=== PATIENT | male | born 1965 | race Caucasian/White ===

== ENCOUNTER 2021-04-07 14:52 | Emergency (ER) | payer OTHER, SELFPAY ==
[2021-04-07 15:12] VITALS: BP 178/118; PULSE 119; RESP 22; O2SAT 100
--- NOTE | 2021-04-07 15:26 | DI.RAD.S_ITS ---
PROCEDURE: XR CHEST 2V INDICATIONS: chest pain TECHNIQUE: 2 views of the chest were acquired. COMPARISON: None. FINDINGS: Surgical changes and devices: None. Lungs and pleura: Lungs are clear. No pleural effusions or pneumothorax. Mediastinum: Mediastinal contours are normal. Heart size is normal. Bones and chest wall: No suspicious bony abnormalities. Soft tissues appear unremarkable. IMPRESSION: No acute cardiopulmonary disease process. Dictated by: Malorie Sunshine MD, PhD on 04/07/2021 at 15:44 Approved by: Malorie Sunshine MD, PhD on 04/07/2021 at 15:55
[2021-04-07 15:44] LABS: Alanine Aminotransferase 28 IU/L (<50); Albumin 4.6 g/dL (3.5-5.0); Albumin Globulin Ratio 1.5 (1.0-2.8); Alkaline Phosphatase 94 U/L (38-126); Aspartate Aminotransferase 26 IU/L (17-59); BUN Creatinine Ratio 14.1 (6-22); Bilirubin Total 0.3 mg/dL (0.2-1.3); Blood Urea Nitrogen 11 mg/dL (9-20); Calcium 9.5 mg/dL (8.4-10.2); Carbon Dioxide 25 mmol/L (22-32); Chloride 105 mmol/L (98-107); Creatine Kinase 58 U/L (55-170); Estimated Glomerular Filt Rate > 60.0 mL/min (>60); Globulin 3.1 g/dL (1.7-4.1); Glucose 199 mg/dL (70-100); HEMOLYSIS < 15 (0-50); Lipase 247 U/L (23-300); Potassium 3.8 mmol/L (3.4-5.1); Sodium 139 mmol/L (137-145); Total Protein 7.7 g/dL (6.3-8.2)
[2021-04-07 15:56] LABS: Troponin I < 0.012 ng/mL (0.01-0.034)
[2021-04-07 16:00] LABS: Add Manual Diff / Slide Review NO; Basophils Absolute Auto 100 /uL (0-100); Basophils Percent Auto 0.6 % (0-2); Eosinophils Absolute Auto 0 /uL (0-450); Eosinophils Percent Auto 0.2 % (2-4); Hematocrit 46.2 % (41-53); Hemoglobin 15.6 g/dL (13.5-17.5); Lymphocytes Absolute Auto 3300 /uL (1100-4500); Lymphocytes Percent Auto 27.3 % (25-40); Mean Corpuscular HGB Conc 33.8 % (30-36); Mean Corpuscular Hemoglobin 30.8 PG (26-34); Mean Corpuscular Volume 91.3 fL (80-100); Monocytes Absolute Auto 800 /uL (0-900); Monocytes Percent Auto 6.6 % (3-14); Neutrophils Absolute Auto 8000 /uL (1500-7000); Neutrophils Percent Auto 65.3 % (50-75); Platelet Count 309 X10^3/uL (150-400); Red Blood Cell Count 5.06 X10^6/uL (4.5-5.9); Red Cell Distribution Width 12.6 % (11.6-14.8); White Blood Cell Count 12.3 X10^3/uL (4.5-11.0)
[2021-04-07 19:12] VITALS: BP 155/95; PULSE 108; O2SAT 99
[2021-04-07 19:13] VITALS: BP 155/93; PULSE 108; RESP 22; O2SAT 99
--- NOTE | 2021-04-07 19:35 | ED_ITS ---
HPI - Arrhythmia/Palpitations General Chief Complaint: Arrhythmia/Palpitations Stated Complaint: heart issues Time Seen by Provider: 04/07/21 19:09 Source: patient Mode of arrival: Ambulatory History of Present Illness HPI narrative: Patient is a 55-year-old male who is here for evaluation the several weeks of palpitations. He states that there episodes where he feels like that his heart is beating fast and skipping beats. He has been told that he has ?tachycardia? in the past. He also states that his blood pressure is elevated because of ?white coat syndrome ?he states that over the past couple days he feels like his symptoms are getting worse. He does not associate this symptoms with anything that make it better worse. He is not getting chest pain or shortness of breath nor lightheadedness with the symptoms. Had a stress test about 4 years ago which he states was unremarkable. Related Data Home Medications Medication Instructions Recorded Confirmed No Known Home Medications 04/07/21 04/07/21 Allergies Allergy/AdvReac Type Severity Reaction Status Date / Time Sulfa (Sulfonamide Allergy Verified 04/07/21 15:15 Antibiotics) Review of Systems Constitutional Constitutional: Reports system reviewed and no additional complaints, except as documented Cardiovascular Cardiovascular: Reports as per HPI Respiratory Respiratory: Reports system reviewed and no additional complaints, except as documented Gastrointestinal Gastrointestinal: Reports system reviewed and no additional complaints, except as documented Genitourinary Genitourinary: Reports system reviewed and no additional complaints, except as documented Musculoskeletal Musculoskeletal: Reports system reviewed and no additional complaints, except as documented Integumentary/Breasts Skin/Breast: Reports system reviewed and no additional complaints, except as documented Neurologic Neurologic: Reports system reviewed and no additional complaints, except as documented Hematologic/Lymphatic On Anticoagulants: No Allergic/Immunologic Allergic/Immunologic: Reports system reviewed and no additional complaints, except as documented Patient History Medical History Tachycardia Social History Smoking Status: Current every day smoker Smoking Status: Current every day smoker alcohol intake frequency: a few times a week Exam Initial Vital Signs Initial Vital Signs: Vital Signs Pulse Rate 119 H 04/07/21 15:12 Respiratory Rate 22 04/07/21 15:12 Blood Pressure 178/118 H 04/07/21 15:12 Pulse Oximetry 100 04/07/21 15:12 Const General: cooperative and healthy appearing [facility] Head: normal to inspection and normocephalic Eyes General: appearance normal, both eyes and all related structures Resp Effort & Inspection: normal respiratory effort Auscultation: clear to auscultation bilaterally Cardio Rate: tachycardic Rhythm: regular rhythm GI Inspection: normal to inspection Skin General: no rashes or lesions noted Neuro General: patient alert, patient awake, patient oriented x3 and moves all extremities Extrem General: normal to inspection and capillary refill normal Psych Appearance: grossly normal Course Orders Ordered: ED Orders 04/07/21 15:24 Complete Blood Count AUTO DIFF Stat Comprehensive Metabolic Panel Stat Lipase Stat Troponin & CK Cardiac Panel Stat 04/07/21 15:26 XR chest 2V Stat EKG-12 Lead Stat Vital Signs Vital signs: Vital Signs - 8 hr 04/07/21 15:12 04/07/21 19:12 04/07/21 19:13 Pulse Rate 119 H 108 H 108 H Respiratory Rate 22 22 Blood Pressure 178/118 H 155/95 H 155/93 H Pulse Oximetry 100 99 99 MDM - Arrhythmia/Palpitations Lab Data Attestation: I reviewed the patient's lab results. Result diagrams: 04/07/21 15:24 04/07/21 15:24 Labs: Lab Results 04/07/21 04/07/21 Range/Units 15:24 15:24 WBC 12.3 H (4.5-11.0) X10^3/uL RBC 5.06 (4.5-5.9) X10^6/uL Hgb 15.6 (13.5-17.5) g/dL Hct 46.2 (41-53) % MCV 91.3 (80-100) fL MCH 30.8 (26-34) PG MCHC 33.8 (30-36) % RDW 12.6 (11.6-14.8) % Plt Count 309 (150-400) X10^3/uL Neut % (Auto) 65.3 (50-75) % Lymph % (Auto) 27.3 (25-40) % [place] % (Auto) 6.6 (3-14) % Eos % (Auto) 0.2 L (2-4) % Baso % (Auto) 0.6 (0-2) % Neut # (Auto) 8000 H (9353-1514) /uL Lymph # (Auto) 3300 (4729-1760) /uL [place] # (Auto) 800 (0-900) /uL Eos # (Auto) 0 (0-450) /uL Baso # (Auto) 100 (0-100) /uL Sodium 139 (137-145) mmol/L Potassium 3.8 (3.4-5.1) mmol/L Chloride 105 (98-107) mmol/L Carbon Dioxide 25 (22-32) mmol/L BUN 11 (9-20) mg/dL Creatinine 0.78 (0.66-1.25) mg/dL Estimated GFR > 60.0 (>60) mL/min BUN/Creatinine Ratio 14.1 (6-22) Glucose 199 H (70-100) mg/dL Calcium 9.5 (8.4-10.2) mg/dL Total Bilirubin 0.3 (0.2-1.3) mg/dL AST 26 (17-59) IU/L ALT 28 (<50) IU/L Alkaline Phosphatase 94 (38-126) U/L Total Creatine Kinase 58 (55-170) U/L CK-MB (CK-2) TNP CK-MB (CK-2) Rel Index TNP Troponin I < 0.012 (0.01-0.034) ng/mL Total Protein 7.7 (6.3-8.2) g/dL Albumin 4.6 (3.5-5.0) g/dL Globulin 3.1 (1.7-4.1) g/dL Albumin/Globulin Ratio 1.5 (1.0-2.8) Lipase 247 (23-300) U/L Imaging Data Chest x-ray: Radiologist's Impresson: [address] [id number] ReportSigned Patient: Frantz OlsenMR#: [id number]: 1965Acct:[id number]/Sex: 55 / MDate of Service: 04/07/21Loc: EDAccession Number: [id number] Procedure: XR chest 2V Ordering Provider: Kristin Babin D.O. PROCEDURE: XR CHEST 2V INDICATIONS: chest pain TECHNIQUE: 2 views of the chest were acquired. COMPARISON: None. FINDINGS: Surgical changes and devices: None. Lungs and pleura: Lungs are clear. No pleural effusions or pneumothorax. Mediastinum: Mediastinal contours are normal. Heart size is normal. Bones and chest wall: No suspicious bony abnormalities. Soft tissues appear unremarkable. IMPRESSION: No acute cardiopulmonary disease process. Dictated by: Malorie Sunshine MD, PhD on 04/07/2021 at 15:44 Approved by: Malorie Sunshine MD, PhD on 04/07/2021 at 15:55 ECG Data Attestation: I personally reviewed and interpreted this ECG as follows: Interpretation: Sinus rhythm Ventricular rate 115 Frequent PVCs Normal QRS Normal QTC No ST T wave changes Normal axis MDM Narrative Medical decision making narrative: Patient is tachycardic in the room however this is not necessarily new for him. He is having frequent PVCs which is most likely the cause of his symptoms. Had a long discussion with him regarding these findings. His labs are unremarkable. Informed him that he did need to talk with his primary doctor about having a Holter monitor for further evaluation. He was given strict return precautions. He expressed understanding and agreement. Discharge Plan Departure Patient Disposition: Home Clinical Impression: Palpitations, Ventricular premature beats Instructions: Premature Ventricular Beats Activity Restrictions/Additional Instructions: You can contact the health resource is coordinator here at the hospital at [phone]. This individual can help you establish a primary doctor. I do recommend that you talk with her primary doctor about obtaining what is called a Holter monitor. Return to the emergency department for any new or worsening symptoms like we discussed. Prescriptions: No Action No Known Home Medications RF: 0
--- NOTE | 2021-10-12 09:53 | PC.NURSE ---
Smoking status changed from current smoker to former smoker per patient request.
== END 2021-04-07 19:50 | disposition home or self-care (01) ==
PROVIDERS: Emergency Medicine; Emergency Provider Emergency Medicine
DX: R00.2 Palpitations (principal); I49.3 Ventricular premature depolarization; R07.9 Chest pain, unspecified
CPT/HCPCS: 36415; 71046; 80053; 82550; 83690; 84484; 85025; 93005; 99283; 99284

== ENCOUNTER 2021-09-07 09:07 | Emergency (ER) | payer OTHER, SELFPAY ==
--- NOTE | 2021-09-07 09:04 | DI.RAD.S_ITS ---
PROCEDURE: XR CHEST 1V INDICATIONS: chest pain TECHNIQUE: One view of the chest was acquired. COMPARISON: [facility], CR, XR CHEST 2V, 04/07/2021, 15:27. FINDINGS: Surgical changes and devices: None. Lungs and pleura: Lungs are clear. No pleural effusions or pneumothorax. Mediastinum: Mediastinal contours appear normal. Heart size is normal. Bones and chest wall: No suspicious bony lesions. Overlying soft tissues appear unremarkable. IMPRESSION: No acute cardiopulmonary abnormalities or focal airspace disease. Dictated by: Morris Valdez M.D. on 09/07/2021 at 9:19 Approved by: Morris Valdez M.D. on 09/07/2021 at 9:19
[2021-09-07 09:09] VITALS: BP 121/87; PULSE 94; RESP 17; TEMP 37.1; O2SAT 97; BMI 25.1
[2021-09-07 09:11] VITALS: PULSE 94; RESP 17; O2SAT 97
[2021-09-07] MEDS: SODIUM CHLORIDE 0.9% 1,000 ML 1000 ML IV (09:19)
[2021-09-07 09:30] VITALS: BP 109/73; PULSE 91; O2SAT 98
[2021-09-07 09:42] LABS: Add Manual Diff / Slide Review NO; Basophils Absolute Auto 0 /uL (0-100); Basophils Percent Auto 0.3 % (0-2); Eosinophils Absolute Auto 0 /uL (0-450); Eosinophils Percent Auto 0.1 % (2-4); Hematocrit 44.1 % (41-53); Hemoglobin 15.1 g/dL (13.5-17.5); Lymphocytes Absolute Auto 2200 /uL (1100-4500); Lymphocytes Percent Auto 23.8 % (25-40); Mean Corpuscular HGB Conc 34.4 % (30-36); Mean Corpuscular Hemoglobin 30.6 PG (26-34); Mean Corpuscular Volume 88.9 fL (80-100); Monocytes Absolute Auto 600 /uL (0-900); Monocytes Percent Auto 6.4 % (3-14); Neutrophils Absolute Auto 6400 /uL (1500-7000); Neutrophils Percent Auto 69.4 % (50-75); Platelet Count 202 X10^3/uL (150-400); Red Blood Cell Count 4.95 X10^6/uL (4.5-5.9); Red Cell Distribution Width 13.2 % (11.6-14.8); White Blood Cell Count 9.3 X10^3/uL (4.5-11.0)
[2021-09-07 09:55] LABS: Alanine Aminotransferase 21 IU/L (<50); Albumin 4.4 g/dL (3.5-5.0); Albumin Globulin Ratio 1.5 (1.0-2.8); Alkaline Phosphatase 79 U/L (38-126); Aspartate Aminotransferase 19 IU/L (17-59); BUN Creatinine Ratio 17.4 (6-22); Bilirubin Total 0.6 mg/dL (0.2-1.3); Blood Urea Nitrogen 16 mg/dL (9-20); Calcium 9.5 mg/dL (8.4-10.2); Carbon Dioxide 26 mmol/L (22-32); Chloride 104 mmol/L (98-107); Creatine Kinase 33 U/L (55-170); Estimated Glomerular Filt Rate > 60.0 mL/min (>60); Globulin 2.9 g/dL (1.7-4.1); Glucose 133 mg/dL (70-100); HEMOLYSIS < 15 (0-50); Lipase 117 U/L (23-300); Potassium 4.3 mmol/L (3.4-5.1); Sodium 136 mmol/L (137-145); Total Protein 7.3 g/dL (6.3-8.2)
[2021-09-07 10:00] VITALS: BP 108/76; PULSE 92; RESP 12; O2SAT 97
[2021-09-07 10:06] LABS: Troponin I < 0.012 ng/mL (0.01-0.034)
--- NOTE | 2021-09-07 10:44 | ED.GENADULT ---
HPI - General Adult General Chief complaint: Syncope Stated complaint: Syncopal, COVID vax booster yesterday Time Seen by Provider: 09/07/21 10:44 Source: patient Mode of arrival: EMS History of Present Illness HPI narrative: 56-year-old gentleman with a history of metabolic syndrome, borderline hypertension frequent PVCs presents after his Moderna booster complaining of low-grade headache, general malaise significant fatigue and a near syncopal episode. He comes in for further evaluation. He does note that his palpitations are far more frequent today his heart rate is somewhat elevated. He has not been having headaches, abdominal pain, vomiting, diarrhea and no lower extremity edema Related Data Previous Rx's Medication Instructions Recorded metoprolol tartrate 25 mg tablet 12.5 mg PO DAILY PRN #30 tab 09/07/21 Allergies Allergy/AdvReac Type Severity Reaction Status Date / Time Sulfa (Sulfonamide Allergy Verified 09/07/21 09:12 Antibiotics) Review of Systems Review of Systems Narrative: Remainder of complete review of systems is otherwise unremarkable except for that included in the HPI. Patient History Medical History (Updated 09/07/21 @ 11:12 by Sofie Bledsoe MD) Tachycardia Social History Smoking Status: Current every day smoker Smoking Status: Current every day smoker alcohol intake frequency: a few times a week Substance Use Type: does not use Exam Narrative Exam Narrative: General: Healthy appearing, in no acute distress. Able to give a complete and coherent history. Well-nourished well-developed HEENT: Moist mucous membranes, normal sclera with reactive pupils, Neck: No JVD, supple Respiratory: Lungs are clear to auscultation, no wheezing no rales no rhonchi. Full and symmetrical air movement Cardiac: Regular rate and rhythm no murmurs no bruits Abdomen: Soft, nontender, good bowel tones, no flank pain Skin: Warm and dry, no rashes Neurologic: Grossly neurologically intact with no obvious asymmetries or abnormalities Extremities: No trauma, well perfused Psych: Cooperative, appropriate insight and affect Initial Vital Signs Initial Vital Signs: Vital Signs Temperature 98.7 F 09/07/21 09:09 Pulse Rate 94 H 09/07/21 09:09 Respiratory Rate 17 09/07/21 09:09 Blood Pressure 121/87 09/07/21 09:09 Pulse Oximetry 97 09/07/21 09:09 Course Orders Ordered: ED Orders 09/07/21 09:04 XR chest 1V Stat EKG-12 Lead Stat 09/07/21 09:30 Complete Blood Count AUTO DIFF Stat Comprehensive Metabolic Panel Stat Lipase Stat Magnesium Stat Troponin & CK Cardiac Panel Stat Discontinued Medications Sodium Chloride (Normal Saline 0.9%) 1,000 mls @ 1,000 mls/hr IV BOLUS ONE Stop: 09/07/21 09:57 Last Infusion: 09/07/21 10:32 Dose: 0 mls/hr Documented by: Admin: 09/07/21 09:19 Dose: 1,000 mls/hr Documented by: EVAN Vital Signs Vital signs: Vital Signs - 8 hr 09/07/21 09:09 09/07/21 09:11 09/07/21 09:30 Temperature 98.7 F Pulse Rate 94 H 94 H 91 H Respiratory Rate 17 17 Blood Pressure 121/87 109/73 Pulse Oximetry 97 97 98 09/07/21 10:00 Temperature Pulse Rate 92 H Respiratory Rate 12 Blood Pressure 108/76 Pulse Oximetry 97 Medical Decision Making Lab Data Result diagrams: 09/07/21 09:30 09/07/21 09:30 Labs: Lab Results 09/07/21 09/07/21 Range/Units 09:30 09:30 WBC 9.3 (4.5-11.0) X10^3/uL RBC 4.95 (4.5-5.9) X10^6/uL Hgb 15.1 (13.5-17.5) g/dL Hct 44.1 (41-53) % MCV 88.9 (80-100) fL MCH 30.6 (26-34) PG MCHC 34.4 (30-36) % RDW 13.2 (11.6-14.8) % Plt Count 202 (150-400) X10^3/uL Neut % (Auto) 69.4 (50-75) % Lymph % (Auto) 23.8 L (25-40) % [place] % (Auto) 6.4 (3-14) % Eos % (Auto) 0.1 L (2-4) % Baso % (Auto) 0.3 (0-2) % Neut # (Auto) 6400 (2656-1230) /uL Lymph # (Auto) 2200 (7335-3080) /uL [place] # (Auto) 600 (0-900) /uL Eos # (Auto) 0 (0-450) /uL Baso # (Auto) 0 (0-100) /uL Sodium 136 L (137-145) mmol/L Potassium 4.3 (3.4-5.1) mmol/L Chloride 104 (98-107) mmol/L Carbon Dioxide 26 (22-32) mmol/L BUN 16 (9-20) mg/dL Creatinine 0.92 (0.66-1.25) mg/dL Estimated GFR > 60.0 (>60) mL/min BUN/Creatinine Ratio 17.4 (6-22) Glucose 133 H (70-100) mg/dL Calcium 9.5 (8.4-10.2) mg/dL Magnesium 2.0 (1.6-2.3) mg/dL Total Bilirubin 0.6 (0.2-1.3) mg/dL AST 19 (17-59) IU/L ALT 21 (<50) IU/L Alkaline Phosphatase 79 (38-126) U/L Total Creatine Kinase 33 L (55-170) U/L CK-MB (CK-2) TNP CK-MB (CK-2) Rel Index TNP Troponin I < 0.012 (0.01-0.034) ng/mL Total Protein 7.3 (6.3-8.2) g/dL Albumin 4.4 (3.5-5.0) g/dL Globulin 2.9 (1.7-4.1) g/dL Albumin/Globulin Ratio 1.5 (1.0-2.8) Lipase 117 (23-300) U/L ECG Data Interpretation: EKG shows sinus rhythm at a rate of 92 Frequent PVCs No acute ischemia MDM Narrative Medical decision making narrative: 56-year-old gentleman with malaise fatigue and a near syncopal episode 24 hours after a Moderna booster. Lab work is unremarkable and reassurance is given A nice discussion about his frequent PVCs which are troublesome for him and caused him increased anxiety. He has had full cardiac workup and no significant abnormalities were appreciated we discussed using as needed 12.5 mg of metoprolol to help to suppress PVCs when they are particularly troublesome. He is interested in trying this. Prescription is given will ask him to follow-up with his primary care physician Discharge Plan Departure Patient Disposition: Home Clinical Impression: Near syncope, Frequent PVCs, Adverse reaction to drug Instructions: DI for Premature Ventricular Beats Activity Restrictions/Additional Instructions: Thank you for coming in today It does appear that you had moderate reaction to your COVID booster. Your lab work is reassuring and there are no life-threatening abnormalities appreciated today. We did discuss your frequent PVCs and high you find them symptomatically annoying. They are not medically compromising. I have given you a prescription for metoprolol 12.5 mg to take as needed at most once a day should you have symptomatic PVCs. This tends to slow your overall heart rate down enough to the point that the PVCs are minimal and far less noticeable. If you have worsening symptoms please feel free to return to the ER Prescriptions: New metoprolol tartrate 25 mg tablet 12.5 mg PO DAILY PRN (Reason: Frequent PVCs) Qty: 30 0RF
[2021-09-07] MEDS: METOPROLOL IR 25 MG TABLET 12.5 MG PO (11:26)
[2021-09-07 11:43] VITALS: BP 126/87; PULSE 98; RESP 13; O2SAT 97
--- NOTE | 2022-03-15 11:53 | PC.NURSE ---
Smoking Status changed to Former smoker per patient request.
== END 2021-09-07 12:06 | disposition home or self-care (01) ==
PROVIDERS: Emergency Provider Emergency Medicine
DX: R55 Syncope and collapse (principal); I49.3 Ventricular premature depolarization; T50.B95A Adverse effect of other viral vaccines, initial encounter
CPT/HCPCS: 36415; 71045; 80053; 82550; 83690; 83735; 84484; 85025; 93005; 96360; 99284

== ENCOUNTER → 2022-09-19 09:46 | Outpatient (CLI) | payer OTHER, SELFPAY ==
[2022-09-19 12:05] LABS: COVID19 -Nasal RAPID Negative (Negative)
== END ==
PROVIDERS: PCP Student in an Organized Health Care Education/Training Program; Visit Provider Surgery
DX: Z20.822 Contact with and (suspected) exposure to COVID-19 (principal); Z01.812 Encounter for preprocedural laboratory examination
CPT/HCPCS: 87635; C9803

== ENCOUNTER 2022-09-20 09:12 | Day surgery (SDC) | payer OTHER, SELFPAY ==
[2022-09-19 08:01] VITALS: BMI 22.6
[2022-09-20 09:50] VITALS: BP 138/87; PULSE 92; RESP 18; TEMP 36.4; O2SAT 99; BMI 21.9
--- NOTE | 2022-09-20 09:58 | PM.HP.1 ---
History of Present Illness History of Present Illness Date Patient Seen: 09/20/22 Time Patient Seen: 09:58 Chief complaint: OPEN UMBILICAL HERNIA REPAIR Narrative: Please see history and physical from the office dated 08/04/2022. There has been no change in his health or symptoms since this time. He continues to complain of worsening pain and discomfort around the umbilical hernia. He relates that he had to reduce it at least 3 times in the last few days. Patient History Medical History Adenomatous colon polyp Diabetes type 2, controlled Diverticulosis Dyslipidemia Hypertension Hypertriglyceridemia Tachycardia Family & Social History Social History: household members spouse Tobacco & Substance use: Smoking Status Current every day smoker alcohol intake frequency a few times a week Substance Use Type does not use Meds Home Medications and Allergies Home Medications Medication Instructions Recorded Confirmed Type cholecalciferol (vitamin D3) 125 125 mcg PO DAILY 08/04/22 09/19/22 History mcg (5,000 unit) capsule magnesium 250 mg tablet 250 mg PO DAILY 08/04/22 09/20/22 History Allergies Allergy/AdvReac Type Severity Reaction Status Date / Time Sulfa (Sulfonamide Allergy Verified 09/20/22 09:09 Antibiotics) Exam Const General: cooperative, healthy appearing and comfortable HENMT Head: normal to inspection Resp Effort & Inspection: normal respiratory effort and able to speak in complete sentences GI Palpation: soft, hernia (Hernia at umbilicus. Defect is palpable and approximately 2 cm on exam.) and No tender Psych Mood: anxious mood Assessment & Plan Assessment and plan (1) Umbilical hernia: Qualifiers: Obstruction and gangrene presence: without obstruction or gangrene Qualified Code(s): K42.9 - Umbilical hernia without obstruction or gangrene Status: Acute Assessment & Plan narrative: Mr. Landry presents today for an umbilical hernia repair. I discussed with him and reiterated what we discussed in the office with regard to how we are going to approach the repair. Think an open report approach is good and with a small defect in it may only require a stitch rather than placement of a mesh. I described possible complications including bleeding infection and injury to bowels or other organs. He understands the risks, though they are low, and would like to proceed with the surgery. Time Spent With Patient Critical Care time: I spent a total of [] minutes of critical care time on this patient's care today; this time is exclusive of procedural time.
[2022-09-20] MEDS: LACTATED RINGERS 1,000 ML 42 ML IV (10:07)
[2022-09-20] MEDS: CEFAZOLIN 2 GM/100 ML PREMIX 100 ML IV (10:10)
--- NOTE | 2022-09-20 10:36 | SUR.OPER ---
Supine on padded OR bed, head on pillow, arms secured on padded arm boards at <90 degrees abduction, legs uncrossed, safety belt at thigh, tape over blanket over lower legs.
[2022-09-20] MEDS: BUPIVACAINE LIPOSOME 266 MG/20 ML VIAL INJ (10:45)
[2022-09-20 11:06] VITALS: BP 101/71; PULSE 71; RESP 17; TEMP 36.2; O2SAT 98
[2022-09-20] MEDS: OXYCODONE IR 5 MG TABLET PO (11:11)
[2022-09-20 11:14] VITALS: BP 95/65; PULSE 68; RESP 11; TEMP 36.3; O2SAT 97
[2022-09-20 11:18] VITALS: BP 96/71; PULSE 59; RESP 12; TEMP 36.4; O2SAT 100
[2022-09-20 11:22] VITALS: BP 109/78; PULSE 68; RESP 11; TEMP 36.4; O2SAT 100
[2022-09-20 11:25] VITALS: BP 110/75; PULSE 69; RESP 12; TEMP 36.2; O2SAT 100
--- NOTE | 2022-09-20 11:31 | PM.OP.1 ---
Operative Date/Time/Diagnoses Pre-op diagnosis: Umbilical hernia Post-op diagnosis: same Procedure & Clinicians Procedure: Umbilical hernia repair, primary repair no mesh for hernia defect under 2 cm Same procedure as scheduled: Yes Indications: Painful symptomatic umbilical non recurrent hernia Surgeon: Rasheeda Herrera Click Yes if Unassisted: Yes Anesthesia Type: General Operative Notes Findings: There was a large hernia sac, but a small defect. Specimen(s): none sent Procedure in detail: Patient was taken to the operating room and placed supine on the operating room table preop antibiotics were administered bilateral SCDs were in place. A time-out was performed. And general endotracheal anesthesia was induced. The abdomen was prepped and draped in the usual sterile fashion. Exparel was used to infuse around the umbilicus. A 15 blade scalpel made an incision curvilinear incision right below the umbilicus. This incision was carried down through to the anterior abdominal wall fascia with electrocautery. At this time the umbilical stalk was dissected and encircled with a [place] drain. The skin was then from the hernia sac using Metzenbaum. The [place] as it turns out went through the hernia sac but as the dissection proceeded it was clear that there was no bowel involved and that bowel was down in the abdomen far away from any point of dissection. The remainder of the sac was then ligated using electrocautery. A Julius was used to grab the fascia and elevate it. Again the defect was so small that a finger could not be inserted. Therefore I decided on a primary repair: I used 0 Prolene sutures in an interrupted fashion. I used 3 interrupted sutures to close the defect. Right after closing the fascia I injected the remaining Exparel into the wound. I then tacked the skin down using a 3-0 Vicryl and closed the subcutaneous tissues with a few more interrupted 3-0 Vicryl sutures. Skin was closed with a running 4-0 Monocryl and the skin was dressed with skin glue. Patient tolerated the procedure well and went in good condition to the postoperative care unit there were no complications and the EBL was minimal.
== END 2022-09-20 12:04 | disposition home or self-care (01) ==
PROVIDERS: PCP Student in an Organized Health Care Education/Training Program; Referring Provider Surgery; Visit Provider Surgery
PROC: (CPT 49591; principal; 2022-09-20 10:15)
DX: K42.9 Umbilical hernia without obstruction or gangrene (principal)
CPT/HCPCS: 49591; C9290; J0330; J0690; J1100; J2405; J2704; J3010

== ENCOUNTER 2022-10-09 09:14 | Emergency (ER) | payer OTHER, SELFPAY ==
[2022-10-09] VITALS (9 sets, daily range): BP systolic 111–143; BP diastolic 74–96; PULSE 79–97; RESP 11–18; TEMP 36.6; O2SAT 98–100; BMI 48.4
--- NOTE | 2022-10-09 09:27 | DI.RAD.S_ITS ---
PROCEDURE: XR CHEST 1V INDICATIONS: Chest pain TECHNIQUE: One view of the chest was acquired. COMPARISON: [facility], CR, XR CHEST 1V, 09/07/2021, 9:10. FINDINGS: Surgical changes and devices: None. Lungs and pleura: Lungs are clear. No pleural effusions or pneumothorax. Mediastinum: Mediastinal contours appear normal. Heart size is normal. Bones and chest wall: No suspicious bony lesions. Overlying soft tissues appear unremarkable. IMPRESSION: No acute cardiopulmonary findings Approved by: Morris Salguero M.D. on 10/09/2022 at 11:02
[2022-10-09 09:33] LABS: Add Manual Diff / Slide Review NO; Basophils Absolute Auto 0 /uL (0-100); Basophils Percent Auto 0.6 % (0-2); Eosinophils Absolute Auto 0 /uL (0-450); Eosinophils Percent Auto 0.6 % (2-4); Hematocrit 42.8 % (41-53); Hemoglobin 14.5 g/dL (13.5-17.5); Lymphocytes Absolute Auto 4000 /uL (1100-4500); Lymphocytes Percent Auto 53.1 % (25-40); Mean Corpuscular HGB Conc 33.9 % (30-36); Mean Corpuscular Hemoglobin 31.2 PG (26-34); Mean Corpuscular Volume 92.1 fL (80-100); Monocytes Absolute Auto 300 /uL (0-900); Monocytes Percent Auto 4.3 % (3-14); Neutrophils Absolute Auto 3100 /uL (1500-7000); Neutrophils Percent Auto 41.4 % (50-75); Platelet Count 214 X10^3/uL (150-400); Red Blood Cell Count 4.65 X10^6/uL (4.5-5.9); Red Cell Distribution Width 12.9 % (11.6-14.8); White Blood Cell Count 7.5 X10^3/uL (4.5-11.0)
--- NOTE | 2022-10-09 09:34 | ED.CHESTPAIN ---
HPI - Chest Pain General Chief Complaint: Chest Pain Stated Complaint: weak, tightness in chest Time Seen by Provider: 10/09/22 09:26 Source: patient Mode of arrival: Ambulatory Limitations: no limitations Limitations: no limitations History of Present Illness HPI narrative: Patient is a 57-year-old male. Has a history of diet maintained type 2 diabetes. Stated that he was sitting at his computer playing a game approximately 1 hour ago where he had an episode of dull chest discomfort and then felt like his heart was racing afterwards. Lasted 4 minutes. Did have some nausea afterwards. All of his symptoms have resolved. Did not radiate. He would no shortness of breath. He does have a history of PVCs but this feels different than that. Contacted EMS who evaluated him however he decided to drive himself to the emergency department. Related Data Home Medications Medication Instructions Recorded Confirmed cholecalciferol (vitamin D3) 125 125 mcg PO DAILY 08/04/22 10/04/22 mcg (5,000 unit) capsule magnesium 250 mg tablet 250 mg PO DAILY 08/04/22 10/04/22 Previous Rx's Medication Instructions Recorded acetaminophen 325 mg tablet 975 mg PO Q6H #30 tabs 09/20/22 ibuprofen 600 mg tablet 600 mg PO Q6HR #30 tabs 09/20/22 Allergies Allergy/AdvReac Type Severity Reaction Status Date / Time Sulfa (Sulfonamide Allergy Verified 10/04/22 13:44 Antibiotics) Review of Systems Constitutional Constitutional: Reports system reviewed and no additional complaints, except as documented Cardiovascular Cardiovascular: Reports system reviewed and no additional complaints, except as documented Respiratory Respiratory: Reports system reviewed and no additional complaints, except as documented Gastrointestinal Gastrointestinal: Reports system reviewed and no additional complaints, except as documented Musculoskeletal Musculoskeletal: Reports system reviewed and no additional complaints, except as documented Integumentary/Breasts Skin/Breast: Reports system reviewed and no additional complaints, except as documented Neurologic Neurologic: Reports system reviewed and no additional complaints, except as documented Patient History Medical History Adenomatous colon polyp Diabetes type 2, controlled Diverticulosis Dyslipidemia Hypertension Hypertriglyceridemia Tachycardia Umbilical hernia Social History household members: spouse Smoking Status: Former smoker Smoking Status: Former smoker alcohol intake frequency: holidays/special occasions only Substance Use Type: does not use Exam Initial Vital Signs Initial Vital Signs: Vital Signs Pulse Rate 80 10/09/22 09:25 Respiratory Rate 18 10/09/22 09:25 Pulse Oximetry 100 10/09/22 09:25 Const General: cooperative and comfortable HENMT Head: normal to inspection and normocephalic Resp Effort & Inspection: normal respiratory effort Auscultation: clear to auscultation bilaterally Cardio Rate: regular rate Rhythm: regular rhythm GI Inspection: normal to inspection Skin General: no rashes or lesions noted Neuro General: patient alert, patient awake and moves all extremities Extrem General: No edema Scores HEART Score Heart Score history: Slightly Suspicious Heart Score EKG: Normal Heart Score Age: 45-64 years old Heart Score risk factors: 1-2 risk factors Heart Score troponin: < or = to normal limit Heart Score Total: 2 Course Orders Ordered: ED Orders 10/09/22 09:19 Complete Blood Count AUTO DIFF Stat Comprehensive Metabolic Panel Stat Lipase Stat Magnesium Stat Troponin & CK Cardiac Panel Stat 10/09/22 09:27 XR chest 1V Stat EKG-12 Lead Stat Vital Signs Vital signs: Vital Signs - 8 hr 10/09/22 09:27 10/09/22 09:25 10/09/22 09:30 Temperature 98 F Pulse Rate 91 H 80 Respiratory Rate 18 18 Blood Pressure 142/87 H 143/96 H Pulse Oximetry 98 100 Oxygen Delivery Method Room Air 10/09/22 09:30 10/09/22 10:00 10/09/22 10:00 Temperature Pulse Rate 89 79 Respiratory Rate 14 12 Blood Pressure 123/75 Pulse Oximetry 100 100 Oxygen Delivery Method 10/09/22 10:30 10/09/22 10:30 10/09/22 11:00 Temperature Pulse Rate 82 91 H Respiratory Rate 15 12 Blood Pressure 111/74 Pulse Oximetry 100 99 Oxygen Delivery Method 10/09/22 11:30 Temperature Pulse Rate 91 H Respiratory Rate 11 L Blood Pressure Pulse Oximetry 99 Oxygen Delivery Method MDM - Chest Pain Lab Data Attestation: I reviewed the patient's lab results. 10/09/22 09:19 10/09/22 09:19 Labs: Lab Results 10/09/22 10/09/22 Range/Units 09:19 09:19 WBC 7.5 (4.5-11.0) X10^3/uL RBC 4.65 (4.5-5.9) X10^6/uL Hgb 14.5 (13.5-17.5) g/dL Hct 42.8 (41-53) % MCV 92.1 (80-100) fL MCH 31.2 (26-34) PG MCHC 33.9 (30-36) % RDW 12.9 (11.6-14.8) % Plt Count 214 (150-400) X10^3/uL Neut % (Auto) 41.4 L (50-75) % Lymph % (Auto) 53.1 H (25-40) % [place] % (Auto) 4.3 (3-14) % Eos % (Auto) 0.6 L (2-4) % Baso % (Auto) 0.6 (0-2) % Neut # (Auto) 3100 (5783-8745) /uL Lymph # (Auto) 4000 (0665-6511) /uL [place] # (Auto) 300 (0-900) /uL Eos # (Auto) 0 (0-450) /uL Baso # (Auto) 0 (0-100) /uL Sodium 140 (137-145) mmol/L Potassium 3.8 (3.4-5.1) mmol/L Chloride 100 (98-107) mmol/L Carbon Dioxide 29 (22-32) mmol/L BUN 21 H (9-20) mg/dL Creatinine 0.77 (0.66-1.25) mg/dL Estimated GFR > 60 (>60) mL/min BUN/Creatinine Ratio 27.3 H (6-22) Glucose 103 H (70-100) mg/dL Calcium 9.4 (8.4-10.2) mg/dL Magnesium 1.9 (1.6-2.3) mg/dL Total Bilirubin 0.6 (0.2-1.3) mg/dL AST 34 (17-59) IU/L ALT 75 H (<50) IU/L Alkaline Phosphatase 83 (38-126) U/L Total Creatine Kinase 36 L (55-170) U/L CK-MB (CK-2) TNP CK-MB (CK-2) Rel Index TNP Troponin I < 0.012 (0.01-0.034) ng/mL Total Protein 7.7 (6.3-8.2) g/dL Albumin 4.6 (3.5-5.0) g/dL Globulin 3.1 (1.7-4.1) g/dL Albumin/Globulin Ratio 1.5 (1.0-2.8) Lipase 221 (23-300) U/L Imaging Data Chest x-ray: Radiologist's Impression: [address] [address] XRay Report Signed Patient: Frantz Olsen MR#: [id number] : 1965 Acct:[id number] Age/Sex: 57 / M Date of Service: 10/09/22 Loc: ED Accession Number: [id number] ?? Procedure: XR chest 1V Ordering Provider: Pietro Wells D.O. PROCEDURE:? XR CHEST 1V ? INDICATIONS:? Chest pain ? TECHNIQUE:? One view of the chest was acquired.? ? COMPARISON:? [facility], CR, XR CHEST 1V, 09/07/2021, 9:10. ? FINDINGS:? ? Surgical changes and devices:? None.? ? Lungs and pleura:? Lungs are clear.? No pleural effusions or pneumothorax.? ? Mediastinum:? Mediastinal contours appear normal.? Heart size is normal.? ? Bones and chest wall:? No suspicious bony lesions.? Overlying soft tissues appear unremarkable.? ? IMPRESSION:? No acute cardiopulmonary findings ? ? ? Approved by: Morris Salguero M.D. on 10/09/2022 at 11:02? ECG Data Attestation: I personally reviewed and interpreted this ECG as follows: Interpretation: Sinus rhythm Ventricular rate 84 Normal axis Normal QRS Normal QTC No ST T wave changes MDM Narrative Medical decision making narrative: Patient does have a low risk heart score. Troponins negative. Nonischemic EKG. Chest x-ray is unremarkable. Is asymptomatic here in the emergency department. His sinus rhythm here in the ER. We did discuss the possibility of an arrhythmia at home that is not presenting on his presentation currently. Patient states that he potentially had a panic attack during this time which very well could be the cause of his symptoms as well. Will discharge patient home with instructions follow-up with his primary doctor. He was given strict return precautions. He expressed understanding and agreement. Discharge Plan Departure Patient Disposition: Home Clinical Impression: Atypical chest pain Instructions: DI for Atypical Chest Pain Activity Restrictions/Additional Instructions: Recommend that you continue to take all of your medications as directed. Contact your primary doctor for a follow-up to discuss the indications for a Holter monitor. Return to the emergency department for any new or worsening symptoms. Prescriptions: No Action magnesium 250 mg tablet 250 mg PO DAILY cholecalciferol (vitamin D3) 125 mcg (5,000 unit) capsule 125 mcg PO DAILY acetaminophen 325 mg Tablet 975 mg PO Q6H Qty: 30 0RF ibuprofen 600 mg Tablet 600 mg PO Q6HR Qty: 30 0RF Referrals: Trisha Sinclair PA-C [Primary Care Provider] - Stand Alone Forms: Patient Portal/API
[2022-10-09 09:47] LABS: Alanine Aminotransferase 75 IU/L (<50); Albumin 4.6 g/dL (3.5-5.0); Albumin Globulin Ratio 1.5 (1.0-2.8); Alkaline Phosphatase 83 U/L (38-126); Aspartate Aminotransferase 34 IU/L (17-59); BUN Creatinine Ratio 27.3 (6-22); Bilirubin Total 0.6 mg/dL (0.2-1.3); Blood Urea Nitrogen 21 mg/dL (9-20); Calcium 9.4 mg/dL (8.4-10.2); Carbon Dioxide 29 mmol/L (22-32); Chloride 100 mmol/L (98-107); Creatine Kinase 36 U/L (55-170); Estimated Glomerular Filt Rate > 60 mL/min (>60); Globulin 3.1 g/dL (1.7-4.1); Glucose 103 mg/dL (70-100); HEMOLYSIS < 15 (0-50); Lipase 221 U/L (23-300); Magnesium 1.9 mg/dL (1.6-2.3); Potassium 3.8 mmol/L (3.4-5.1); Sodium 140 mmol/L (137-145); Total Protein 7.7 g/dL (6.3-8.2)
--- NOTE | 2022-10-09 09:49 | PC.NURSE ---
patient was sitting down this morning and drinking his coffee. His heart rate began to rise and he felt dizzy, lightheaded and nauseated. He did not pass out out, no vomiting and no pain. His heart and dizzyness is what brought him in to the ER. Now symptoms have resolved and he is tired.
[2022-10-09 09:59] LABS: Troponin I < 0.012 ng/mL (0.01-0.034)
== END 2022-10-09 12:31 | disposition home or self-care (01) ==
PROVIDERS: Emergency Provider Emergency Medicine; PCP Student in an Organized Health Care Education/Training Program
DX: R07.89 Other chest pain (principal)
CPT/HCPCS: 36415; 71045; 80053; 82550; 83690; 83735; 84484; 85025; 93005; 93010; 99283; 99284

== ENCOUNTER 2023-07-19 10:18 | Day surgery (SDC) | payer OTHER, SELFPAY ==
[2023-07-19 10:43] VITALS: BP 142/91; PULSE 100; RESP 16; TEMP 37.1; O2SAT 99; BMI 22.8
[2023-07-19] MEDS: LACTATED RINGERS 1,000 ML 84 ML IV (11:01)
--- NOTE | 2023-07-19 11:41 | P.HP_ITS ---
History of Present Illness History of Present Illness Date Patient Seen: 07/19/23 Time Patient Seen: 11:42 Chief complaint: Screening Colonoscopy Narrative: Self history of colon polyps in cecum with last scope 7 years ago. No symptoms PFSH Medical History Diverticulosis Adenomatous colon polyp Hypertriglyceridemia Hypertension Dyslipidemia Umbilical hernia Diabetes type 2, controlled Tachycardia Social History household members: spouse Smoking Status: Former smoker alcohol intake: current Meds Home Medications and Allergies Home Medications Medication Instructions Recorded Confirmed Type cholecalciferol (vitamin D3) 125 125 mcg PO DAILY 08/04/22 07/19/23 History mcg (5,000 unit) capsule magnesium 250 mg tablet 250 mg PO DAILY 08/04/22 07/19/23 History acetaminophen 325 mg tablet 975 mg (3 x 325 mg) PO Q6H #30 tabs 09/20/22 1 09/18/22 Rx Allergies Allergy/AdvReac Type Severity Reaction Status Date / Time Sulfa (Sulfonamide Allergy Verified 07/19/23 10:34 Antibiotics) Review of Systems Review of Systems Narrative: Nervous ROS: Yes All systems reviewed with the patient and are negative except as otherwise documented Exam Vital Signs (past 8 hours): - 07/19/23 10:43 Temperature 98.7 F Pulse Rate 100 H Respiratory Rate 16 Blood Pressure 142/91 H Pulse Oximetry 99 Oxygen Delivery Method Room Air Oxygen Delivery Method Room Air Const General: cooperative and anxious HENDE Head: normocephalic and atraumatic Eyes General: appearance normal, both eyes and all related structures Neck Neck: no meningeal signs and trachea midline Resp Effort & Inspection: normal respiratory effort and able to speak in complete sentences Cardio Rate: tachycardic Rhythm: regular rhythm GI Inspection: non-distended Palpation: soft Skin General: elasticity normal and turgor normal Neuro General: patient alert, patient awake and patient oriented x3 Psych Appearance: grossly normal Mental Status: mental status grossly normal Affect: normal affect Judgment: judgment good Assessment & Plan Assessment & Plan narrative: H/o colon polyps Plan: colonoscopy with anesthesia Time Spent With Patient Time with patient: less than 30 minutes
--- NOTE | 2023-07-19 12:18 | PM.OP.COLON ---
Operative Date/Time/Diagnoses Date of procedure: 07/19/23 Time of procedure: 12:18 Pre-op diagnosis: History of colon polyps Post-op diagnosis: same Procedure & Clinicians Study performed: Colonoscopy with anesthesia Same procedure as scheduled: Yes Indications: History of colon polyps Surgeon: Patrica Lawler Procedure Notes Procedure in detail: Preop diagnosis: Self history of colon polyps Postop diagnosis: Same Operative procedure: Colonoscopy with anesthesia Surgeon: Dunia Lawler MD Findings: Extensive large diverticuli through the descending colon. No polyps identified. Retroflex included in the rectum Procedure: Patient placed in lateral position. Rectal exam performed showing normal tone no masses. Colonoscope inserted into the rectum and advanced to ileocecal valve with minimal difficulty. Insufflation and extraction of the scope had the above findings. Retroflex was included in the rectum. Impression: No polyps identified. Extensive large diverticuli of the descending colon. Plan: Repeat colonoscopy in 5 years unless otherwise indicated by change in clinical condition Findings: divertiulosis Specimen(s): none sent Complications: none Post-procedure Recommendations: Colonoscopy in 5 years Follow up: as needed Disposition: PACU
[2023-07-19 12:21] VITALS: BP 112/72; PULSE 80; RESP 12; TEMP 36.9; O2SAT 99
[2023-07-19 12:26] VITALS: BP 109/78; PULSE 81; RESP 12; TEMP 36.9; O2SAT 99
[2023-07-19 12:31] VITALS: BP 121/83; PULSE 77; RESP 18; O2SAT 99
[2023-07-19 12:37] VITALS: BP 122/81; PULSE 77; RESP 18; TEMP 36.8; O2SAT 98
== END 2023-07-19 12:41 | disposition home or self-care (01) ==
PROVIDERS: PCP Student in an Organized Health Care Education/Training Program; Referring Provider Surgery; Visit Provider Surgery
PROC: 0DJD8ZZ Inspection of Lower Intestinal Tract, Via Natural or Artificial Opening Endoscopic (ICD-10-PCS; CPT 45378; principal; 2023-07-19 11:15)
DX: Z12.11 Encounter for screening for malignant neoplasm of colon (principal); Z86.010 Personal history of colon polyps; K57.30 Diverticulosis of large intestine without perforation or abscess without bleeding
CPT/HCPCS: 45378; J2704